=== PATIENT | male | born 1985 | race Caucasian/White ===

== ENCOUNTER 2023-12-24 02:22 | Emergency (ER) | payer SELFPAY ==
[~2023-12-24] VITALS: Ht 170.2 cm; Wt 78.0 kg
[2023-12-24 02:23] VITALS: BP 155/99; PULSE 132; RESP 18; TEMP 98.1; O2SAT 99
== END 2023-12-24 02:38 | disposition left against medical advice (07) ==
LOC: ER 02:22
DX: F41.9 Anxiety disorder, unspecified (principal); Z53.21 Procedure and treatment not carried out due to patient leaving prior to being seen by health care provider